=== PATIENT | male | born 1985 | race Caucasian/White ===

== ENCOUNTER 2024-03-25 12:27 | Observation (INO) | payer OTHER ==
[2024-03-25] MEDS ORDERED: NA CHLORIDE 0.9% 1,000 ML ONE (12:57)
[2024-03-25 13:23] LABS: Absolute Basophils 0.1 K/uL (0-0.5); Absolute Eosinophils 0.3 K/uL (0-0.5); Absolute Lymphocytes (CBC) 1.6 K/uL (0.7-4.9); Absolute Monocytes 0.5 K/uL (0.1-1.3); Absolute Neutrophil 4.2 K/uL (1.8-8.0); Basophils % 2.1 % (0-1.3); Hematocrit 40.8 % (39.6-49.0); Hemoglobin 13.7 g/dL (13.6-17.9); Lymphocytes % 22.9 % (15.3-44.8); MCH 29.2 pg (27.0-35.0); MCHC 33.5 g/dL (32.0-36.0); MPV 9.4 fL (7.6-11.3); Monocytes % 7.7 % (3.3-12.3); Neutrophils % 62.3 % (41.7-73.7); Nucleated Red Blood Cells % 0.1 % (0-0); Platelets 246 thou/uL (152-406); RBC Red Blood Cell Count 4.69 M/uL (4.33-5.43); Red Cell Distribution Width 14.1 % (12.1-15.2)
[2024-03-25 13:40] LABS: Albumin 3.1 g/dL (3.4-5.0); Albumin/Globulin Ratio 0.9 (1.1-1.8); Anion Gap 10.3 mEq/L (5.0-15.0); Bilirubin Total 0.4 mg/dL (0.2-1.0); Globulin 3.6 g/dL (2.3-3.5); Magnesium 1.8 mg/dL (1.6-2.4); Potassium 3.3 mEq/L (3.5-5.1); Protein, Total 6.7 g/dL (6.4-8.2); Troponin High Sensitivity 5.9 pg/mL (<58.9)
[2024-03-25] MEDS ORDERED: D5 0.9 NS 1,000 ML IV ONE (14:32)
--- NOTE | 2024-03-25 14:38 | ER ---
Nurse's Notes [facility] Name: Ramakrishna Santana Age: 39 yrs Sex: Male : 1985 Arrival Date: 03/25/2024 Time: 12:27 Bed 19 Private MD: Diagnosis: Other acute kidney failure;Hypokalemia Presentation: 03/25 12:45 Chief complaint: Patient states: passed out due to low blood sugar. Coronavirus screen: kj2 Client denies travel out of the [place] in the last 14 days. Ebola Screen: No symptoms or risks identified at this time. Initial Sepsis Screen: Does the patient meet any 2 criteria? No. Patient's initial sepsis screen is negative. Does the patient have a suspected source of infection? No. Patient's initial sepsis screen is negative. Risk Assessment: Do you want to hurt yourself or someone else? Patient reports no desire to harm self or others. Onset of symptoms was March 25, 2024. 12:45 Method Of Arrival: Ambulatory kj2 12:45 Acuity: BERRY 3 kj2 Triage Assessment: 12:45 General: Appears in no apparent distress. Behavior is calm, cooperative. Pain: Denies kj2 pain. Historical: - Allergies: 13:11 NKDA; kj2 - PMHx: 13:11 Diabetes mellitus; kj2 - Immunization history:: Adult Immunizations unknown. - Infectious Disease History:: Denies. - Social history:: Smoking status: Patient denies any tobacco usage or history of. Screenin:45 [facility] ED Fall Risk Assessment (Adult) History of falling in the last 3 months, kj2 including since admission No falls in past 3 months (0 pts) Confusion or Disorientation No (0 pts) Intoxicated or Sedated No (0 pts) Impaired Gait No (0 pts) Mobility Assist Device Used No (0 pt) Altered Elimination No (0 pt) Score/Fall Risk Level 0 - 2 = Low Risk Oriented to surroundings, Hourly rounding (assess needs \T\ fall precautionary measures) done. Abuse screen: Denies threats or abuse. Denies injuries from another. Nutritional screening: No deficits noted. Tuberculosis screening: No symptoms or risk factors identified. Assessment: 12:50 General: see triage assessment. kj2 14:00 Reassessment: Patient appears in no apparent distress at this time. Patient and/or kj2 family updated on plan of care and expected duration. Pain level reassessed. Patient is alert, oriented x 3, equal unlabored respirations, skin warm/dry/pink. 15:15 Reassessment: Patient appears in no apparent distress at this time. Patient and/or kj2 family updated on plan of care and expected duration. Pain level reassessed. Patient is alert, oriented x 3, equal unlabored respirations, skin warm/dry/pink. 15:38 Reassessment: patient left AMA, form signed. kj2 Vital Signs: 12:45 BP 151 / 101; Pulse 93; Resp 18; Temp 98; Pulse Ox 100% ; Weight 102.06 kg; Height 5 kj2 ft. 6 in. ; Pain 0/10; 14:00 BP 122 / 100; Pulse 86; Resp 20; Pulse Ox 100% on R/A; kj2 15:39 BP 142 / 88; Pulse 78; Resp 18; Temp 98; Pulse Ox 100% ; kj2 12:45 Body Mass Index 36.32 (102.06 kg, 167.64 cm) kj2 12:45 Pain Scale: Adult kj2 ED Course: 12:40 Patient arrived in ED. ap3 12:40 River Erickson FNP-C is PHCP. dr5 12:40 Angel Savage MD is Attending Physician. dr5 12:43 Client placed on continuous cardiac and pulse oximetry monitoring. NIBP monitoring ap3 applied. satellite project site monitor on. Pulse ox on. NIBP on. 12:45 Patient has correct armband on for positive identification. Bed in low position. Call kj2 light in reach. Adult w/ patient. Provided Education on: call light. 12:59 Uma Horne, RN is Primary Nurse. kj2 13:02 Warm blanket given. Verbal reassurance given. em1 13:02 Inserted saline lock: 20 gauge in left antecubital area, using aseptic technique. Blood em1 collected. Flushed with 10 mL NS. 13:06 CBC with Diff Sent. kj2 13:06 Magnesium Sent. kj2 13:06 Troponin HS Sent. kj2 13:09 Triage completed. kj2 13:12 No provider procedures requiring assistance completed. kj2 13:24 XRAY Chest (1 view) In Process Unspecified. EDMS 14:17 EKG done, by ED staff, reviewed by Angel Savage MD. am7 14:38 Yuliana Helms MD is Hospitalizing Provider. dr5 15:39 Arm band placed on Patient placed. kj2 15:40 IV discontinued, intact, bleeding controlled, No redness/swelling at site. Pressure kj2 dressing applied. Administered Medications: 13:05 Drug: NS 0.9% IV 1000 ml IV at 1000 ml once; to be given as a bolus over 60 minutes kj2 Route: IV; Rate: 1000 ml; Site: left antecubital; 14:24 Follow up: IV Status: Completed infusion; IV Intake: 1000ml kj2 14:36 Drug: D5-NS IV 1000 ml IV at 125 ml/hr continuous Route: IV; Rate: 125 ml/hr; Site: bp left forearm; 15:41 Follow up: IV Status: Order to discontinue infusion; IV Intake: 125ml kj2 14:37 Not Given (Other Intervention Used): ns 0.9% 1000 ml IV at 1000 ml once; to be given as bp a bolus over 60 minutes 15:18 Drug: Potassium Chloride PO 40 mEq PO once Route: PO; kj2 15:41 Follow up: Response: No adverse reaction kj2 Medication: 12:45 VIS not applicable for this client. kj2 Intake: 14:24 IV: 1000ml; Total: 1000ml. kj2 15:41 IV: 125ml; Total: 1125ml. kj2 Outcome: 14:38 Decision to Hospitalize by Provider. dr5 15:40 AMA AMA form signed kj2 15:40 Condition: stable 15:40 Discharge instructions given to Instructed on discharge instructions, follow up and referral plans. Demonstrated understanding of instructions, follow-up care, 15:41 Patient left the ED. kj2 Signatures: Dispatcher [employer] Andrew Martinez em1 Zuhair Leal RN RN bp Candy Rust RN RN ap3 Uma Horne RN RN kj2 River Erickson, LUIS M-C BILINGUAL SPEECH THERAPIST-[facility]5 Hannah Pineda am7
--- NOTE | 2024-03-25 14:38 | EDPHYS ---
Physician Documentation [facility] Name: Ramakrishna Santana Age: 39 yrs Sex: Male : 1985 Arrival Date: 03/25/2024 Time: 12:27 Bed 19 Private MD: ED Physician Angel Savage HPI: 03/25 13:04 This 39 yrs old Male presents to ER via Ambulatory with complaints of Low dr5 Blood Sugar. 13:04 Onset: The symptoms/episode began/occurred acutely. Patient is a 39-year-old male with dr5 past medical history of hypertension, diabetes coming in with symptoms of low blood sugar. Mother reports they worked to [employer] and had chocolate shake and orange soda to try to correct sugar. Patient reports taking insulin after eating and long-acting at night. Patient came in by POV into ambulance bay in which IV will turn him to room. Blood sugar upon arrival was in 60s. Patient is alert and oriented without any complaints at this time.. Historical: - Allergies: 13:11 NKDA; kj2 - PMHx: 13:11 Diabetes mellitus; kj2 - Immunization history:: Adult Immunizations unknown. - Infectious Disease History:: Denies. - Social history:: Smoking status: Patient denies any tobacco usage or history of. ROS: 13:04 Constitutional: as per hpi dr5 Exam: 13:04 Constitutional: This is a well developed, well nourished patient who is awake, alert, dr5 and in no acute distress. Head/Face: Normocephalic, atraumatic. Eyes: Pupils equal round and reactive to light, extra-ocular motions intact. Lids and lashes normal. Conjunctiva and sclera are non-icteric and not injected. Cornea within normal limits. Periorbital areas with no swelling, redness, or edema. Chest/axilla: Normal chest wall appearance and motion. Nontender with no deformity. No lesions are appreciated. Cardiovascular: Regular rate and rhythm with a normal S1 and S2. Normal PMI, no JVD. No pulse deficits. Respiratory: Lungs have equal breath sounds bilaterally, clear to auscultation. No rales, rhonchi or wheezes noted. No increased work of breathing, no retractions or nasal flaring. Back: No spinal tenderness. No costovertebral tenderness. Full range of motion. Skin: Warm, dry with normal turgor. Normal color with no rashes, no lesions, and no evidence of cellulitis. MS/ Extremity: Pulses equal, no cyanosis. Neurovascular intact. Full, normal range of motion. Neuro: Awake and alert, GCS 15, oriented to person, place, time, and situation. Cranial nerves II-XII grossly intact. Motor strength 5/5 in all extremities. Sensory grossly intact. Cerebellar exam normal. Normal gait. Vital Signs: 12:45 BP 151 / 101; Pulse 93; Resp 18; Temp 98; Pulse Ox 100% ; Weight 102.06 kg; Height 5 kj2 ft. 6 in. ; Pain 0/10; 14:00 BP 122 / 100; Pulse 86; Resp 20; Pulse Ox 100% on R/A; kj2 15:39 BP 142 / 88; Pulse 78; Resp 18; Temp 98; Pulse Ox 100% ; kj2 12:45 Body Mass Index 36.32 (102.06 kg, 167.64 cm) kj2 12:45 Pain Scale: Adult kj2 MDM: 12:41 Medical Screening Exam initiated miracle 14:45 Differential diagnosis: DKA, hyperglycemia, hypoglycemic episode. Data reviewed: vital dr5 signs, nurses notes, lab test result(s). Consideration of Admission/Observation Patient was admitted/placed on observation. Historians other than the Patient: Parent: Mother. Care significantly affected by the following chronic conditions: Diabetes, Hypertension. Care significantly affected by the following Social Determinants of Health: Poor access to healthcare and/or lack of insurance, Poor access to transportation, Problems related to employment. Counseling: I had a detailed discussion with the patient and/or guardian regarding the historical points, exam findings, and any diagnostic results supporting the discharge/admit diagnosis, the presence of at least one elevated blood pressure reading (>120/80) during this emergency department visit, lab results, the need for further work-up and treatment in the hospital. Response to treatment: the patient's symptoms have mildly improved after treatment. ED course: Patient came in with blood sugar of 60 and slightly altered. Blood work found to have acute kidney injury with creatinine of almost 2. Patient was given juice and later had another episode of hypoglycemia with altered mental status. Will admit for acute kidney injury and observation.. 03/25 12:41 Order name: CBC with Diff; Complete Time: 13:37 dr5 01/19 12:41 Order name: Magnesium; Complete Time: 13:53 dr5 03/25 12:41 Order name: Troponin HS; Complete Time: 13:53 dr5 03/25 12:41 Order name: CMP; Complete Time: 13:53 dr5 03/25 12:41 Order name: Urinalysis w/ reflexes dr5 03/25 12:46 Order name: Urine Drug Screen dr5 03/25 12:48 Order name: Glucose, Ancillary Testing; Complete Time: 12:50 EDMS 03/25 14:40 Order name: Glucose, Ancillary Testing; Complete Time: 14:47 EDMS 03/25 14:53 Order name: Basic Metabolic Panel EDMS 03/25 14:53 Order name: Basic Metabolic Panel EDMS 03/25 14:53 Order name: Basic Metabolic Panel EDMS 03/25 14:53 Order name: Basic Metabolic Panel EDMS 03/25 14:53 Order name: Basic Metabolic Panel EDMS 03/25 14:53 Order name: Basic Metabolic Panel EDMS 03/25 14:53 Order name: Basic Metabolic Panel EDMS 03/25 14:53 Order name: Basic Metabolic Panel EDMS 03/25 14:53 Order name: CBC with Automated Diff EDMS 03/25 14:53 Order name: CBC with Automated Diff EDMS 03/25 14:53 Order name: CBC with Automated Diff EDMS 03/25 14:53 Order name: CBC with Automated Diff EDMS 03/25 14:53 Order name: CBC with Automated Diff EDMS 03/25 14:53 Order name: CBC with Automated Diff EDMS 03/25 14:53 Order name: CBC with Automated Diff EDMS 03/25 14:53 Order name: CBC with Automated Diff EDMS 03/25 14:53 Order name: Magnesium EDMS 03/25 14:53 Order name: Magnesium EDMS 03/25 14:53 Order name: Magnesium EDMS 03/25 14:53 Order name: Magnesium EDMS 03/25 14:53 Order name: Magnesium EDMS 03/25 14:53 Order name: Magnesium EDMS 03/25 14:53 Order name: Magnesium EDMS 03/25 14:53 Order name: Magnesium EDMS 03/25 15:39 Order name: Glucose, Ancillary Testing; Complete Time: 15:40 EDMS 03/25 12:41 Order name: XRAY Chest (1 view); Complete Time: 14:51 [facility] 03/25 12:41 Order name: Cardiac monitoring; Complete Time: 12:42 [facility] 03/25 12:41 Order name: EKG - Nurse/Tech; Complete Time: 13:56 [facility] 03/25 12:41 Order name: IV Saline Lock; Complete Time: 13:03 [facility] 03/25 12:41 Order name: Labs collected and sent; Complete Time: 13:03 [facility] 03/25 12:41 Order name: O2 Per Protocol; Complete Time: 12:42 [facility] 03/25 12:41 Order name: O2 Sat Monitoring; Complete Time: 12:42 dr5 Administered Medications: 13:05 Drug: NS 0.9% IV 1000 ml IV at 1000 ml once; to be given as a bolus over 60 minutes kj2 Route: IV; Rate: 1000 ml; Site: left antecubital; 14:24 Follow up: IV Status: Completed infusion; IV Intake: 1000ml kj2 14:36 Drug: D5-NS IV 1000 ml IV at 125 ml/hr continuous Route: IV; Rate: 125 ml/hr; Site: bp left forearm; 15:41 Follow up: IV Status: Order to discontinue infusion; IV Intake: 125ml kj2 14:37 Not Given (Other Intervention Used): ns 0.9% 1000 ml IV at 1000 ml once; to be given as bp a bolus over 60 minutes 15:18 Drug: Potassium Chloride PO 40 mEq PO once Route: PO; kj2 15:41 Follow up: Response: No adverse reaction kj2 Disposition Summary: 03/25/24 14:38 Hospitalization Ordered Notes: Hospitalization Status: Observation dr5 Provider: uYliana Helms dr5 Location: Telemetry/MedSurg (observation) dr5 Condition: Stable dr5 Problem: new dr5 Symptoms: are unchanged dr5 Bed/Room Type: Standard dr5 Room Assignment: dr5 Diagnosis - Other acute kidney failure dr5 - Hypokalemia dr5 Forms: - Medication Reconciliation Form dr5 - SBAR form dr5 - Leadership Thank You Letter dr5 Signatures: Dispatcher [employer] EDMS Angel Savage MD MD cha Peltier, Brian, RN RN bp Uma Horne, RN RN kj2 River Erickson, MATERIAL REQUIREMENTS WORKER-C MATERIAL REQUIREMENTS WORKER-Cdr5 Corrections: (The following items were deleted from the chart) 12:41 12:41 Chest Single View+RAD.RAD.BRZ ordered. EDMS EDMS
[2024-03-25] MEDS ORDERED: ACETAMINOPHEN 500 MG TAB PO PRN (14:47)
[2024-03-25] MEDS ORDERED: ONDANSETRON 4 MG/2 ML VIAL IV PRN (14:47)
--- NOTE | 2024-03-25 14:50 | RAD REPORT ---
EXAMINATION: ONE VIEW CHEST XR CLINICAL INDICATION: Male, 39 years old.,PAIN TECHNIQUE: Frontal chest projection is submitted. Examination is limited by patient positioning and t echnique. COMPARISON: 10/28/2010 FINDINGS: The lungs are grossly clear although suboptimal inspiratory effort somewhat limits evaluation. No pn eumothorax or sizable effusion. The heart is normal in size. Mediastinal contours are unremarkable. IMPRESSION: No acute intrathoracic abnormalities.
[2024-03-25] MEDS ORDERED: DEXTROSE 10%-WATER 500 ML IV SCH (15:00)
[2024-03-25] MEDS ORDERED: POTASSIUM CL SA 10 MEQ TAB PO ONE (15:00)
--- NOTE | 2024-03-25 15:34 | P.HP ---
Certification for Inpatient Patient admitted to: Observation With expected LOS: <2 Midnights Practitioner: I am a practitioner with admitting privileges, knowledge of patient current condition, hospital course, and medical plan of care. Services: Services provided to patient in accordance with Admission requirements found in Title 42 Section 412.3 of the Code of Federal Regulations Patient History Date of Service: 03/25/24 Reason for admission: Hypoglycemia History of Present Illness: 39-year-old male with history of type 2 diabetes, essential hypertension, hyperlipidemia, who initially presented with altered mental status and hypoglycemia. Per daughter's account was at the bedside, this morning after leaving [facility], patient was having generalized tremors consistent with his prior episodes of hypoglycemia and mentation was also altered. Family then drove [employer] so he can get something to eat however he only drank orange juice and continue to have tremors with worsening mentation so family drove patient to the emergency room at [facility]. Of note, patient takes Trulicity, and a long-acting insulin and short acting insulin with meals though he does not know the names of the insulin In the ER, blood sugar was in the 60s. Patient given NS IV fluids and amp of D50, repeat blood sugars were checked after 2 hours, but it has dropped to the 50s prompted patient to be referred for admission. When I arrived at bedside, patient was seen up in bed, oriented x 3, was back at baseline according to daughter. He declined admission stating that he has had issues like this in the past and he felt better after receiving IV fluids and D50. Allergies No Known Allergies Allergy (Unverified 03/25/24 15:13) Review of Systems 10-point ROS is otherwise unremarkable Physical Examination - Physical Exam General: Alert, Oriented x3 HEENT: Atraumatic Neck: Supple Respiratory: Clear to auscultation bilaterally Cardiovascular: No edema, Normal pulses, Regular rate/rhythm Gastrointestinal: Normal bowel sounds, Soft and benign, Non-distended Musculoskeletal: No clubbing, No swelling Integumentary: No rashes, No breakdown Neurological: Normal gait, Normal tone, Normal affect - Studies Laboratory Data (last 24 hrs) 03/25/24 03/25/24 12:57 12:57 WBC 6.80 Hgb 13.7 Hct 40.8 Plt Count 246 Sodium 137 Potassium 3.3 L BUN 19 H Creatinine 1.95 H Glucose 74 Magnesium 1.8 Total Bilirubin 0.4 AST 61 H ALT 60 Alkaline Phosphatase 101 Assessment and Plan - Plan 1. Hypoglycemia secondary to polypharmacy -Blood sugars in the 60s in ER however dropped to the 50s after receiving amp of D50 so was admitted for overnight monitoring -Initiated on D10 with every 4 hours fingersticks -Discussed with patient regarding the rationale for inpatient admission and the need to be monitored in the medical setting in light of risk of recurrent hypoglycemia however he declined to be admitted stating that he has had similar symptoms in the past and that resolved quickly after receiving treatment. Opted to sign out AMA. Daughter was present during the discussion - Advance Directives Does patient have a Living Will: No Does patient have a Durable POA for Healthcare: No
--- NOTE | 2024-03-25 15:41 | P.DS ---
Admission Date: 03/25/24 Discharge Date: 03/25/24 Disposition: AMA-LEFT AGAINST MEDICAL ADVIC Discharge Condition: GOOD Reason for Admission: Hypoglycemia Brief History of Present Illness: 39-year-old male with history of type 2 diabetes, essential hypertension, hyperlipidemia, who initially presented with altered mental status and hypoglycemia. Per daughter's account was at the bedside, this morning after leaving [facility], patient was having generalized tremors consistent with his prior episodes of hypoglycemia and mentation was also altered. Family then drove [employer] so he can get something to eat however he only drank orange juice and continue to have tremors with worsening mentation so family drove patient to the emergency room at [facility]. Of note, patient takes Trulicity, and a long-acting insulin and short acting insulin with meals though he does not know the names of the insulin In the ER, blood sugar was in the 60s. Patient given NS IV fluids and amp of D50, repeat blood sugars were checked after 2 hours, but it has dropped to the 50s prompted patient to be referred for admission. When I arrived at bedside, patient was seen up in bed, oriented x 3, was back at baseline according to daughter. He declined admission stating that he has had issues like this in the past and he felt better after receiving IV fluids and D50. Hospital Course: 39-year-old male with history of type 2 diabetes, essential hypertension, hyperlipidemia, for altered mental status and hypoglycemia. Initial blood sugars in the ER was in the 60s and actually decreased to the 50s after receiving D50 so patient admitted for inpatient treatment for hypoglycemia. Of note he takes Trulicity, long-acting insulin and short acting insulin with meals. On admission ordered D10, however patient declined to be admitted, stating that he he feels fine and has had prior episodes in the past which resolved quickly and despite my warning regarding the risk of recurrent hypoglycemia if not treated promptly, he opted to leave AMA General: Oriented x3 HEENT: Atraumatic Neck: Supple Respiratory: Clear to auscultation bilaterally, Normal air movement Cardiovascular: No edema Musculoskeletal: No clubbing, No swelling Neurological: Normal gait, Normal strength at 5/5 x4 extr Laboratory Data at Discharge: WBC 6.80 thou/uL (4.3-10.9) 03/25/24 12:57 Hgb 13.7 g/dL (13.6-17.9) 03/25/24 12:57 Hct 40.8 % (39.6-49.0) 03/25/24 12:57 Plt Count 246 thou/uL (152-406) 03/25/24 12:57 Sodium 137 mEq/L (136-145) 03/25/24 12:57 Potassium 3.3 mEq/L (3.5-5.1) L 03/25/24 12:57 BUN 19 mg/dL (7-18) H 03/25/24 12:57 Creatinine 1.95 mg/dL (0.70-1.30) H 03/25/24 12:57 Glucose 74 mg/dL (74-106) 03/25/24 12:57 Magnesium 1.8 mg/dL (1.6-2.4) 03/25/24 12:57 Total Bilirubin 0.4 mg/dL (0.2-1.0) 03/25/24 12:57 AST 61 U/L (15-37) H 03/25/24 12:57 ALT 60 U/L (16-61) 03/25/24 12:57 Alkaline Phosphatase 101 U/L (45-117) 03/25/24 12:57 Followup: [email or web address] [Primary Care Provider] -
[2024-03-25 15:56] LABS: Barbiturates NEGATIVE (NEGATIVE); Benzodiazepines NEGATIVE (NEGATIVE); Cocaine NEGATIVE (NEGATIVE); METHAMPHETAM NEGATIVE (NEGATIVE); Methadone NEGATIVE (NEGATIVE); Opiates NEGATIVE (NEGATIVE); Phencyclidine NEGATIVE (NEGATIVE); THC Cannibis NEGATIVE (NEGATIVE)
[2024-03-25 16:03] VITALS: TEMP 98; O2SAT 100
[2024-03-25 16:14] VITALS: BP 142/88
== END 2024-03-25 19:00 | disposition home or self-care (01) ==
LOC: ER 12:27 → INTOOBSV 14:44 → ERHOLD 14:44
PROVIDERS: ADMIT Internal Medicine; ATTEND Internal Medicine
DX: E11.649 Type 2 diabetes mellitus with hypoglycemia without coma (principal); R41.82 Altered mental status, unspecified; R25.1 Tremor, unspecified; I10 Essential (primary) hypertension; E78.5 Hyperlipidemia, unspecified; N19 Unspecified kidney failure; Z79.4 Long term (current) use of insulin; Z53.29 Procedure and treatment not carried out because of patient's decision for other reasons
CPT/HCPCS: 85025; 36415; 83735; 82947 ×3; 84484; 80053; 80307; 71045; J7042; J7030; G0378

== ENCOUNTER 2024-04-08 07:10 | Inpatient (IN) | payer OTHER ==
[2024-04-08 08:16] LABS: Absolute Basophils 0.2 K/uL (0-0.5); Absolute Eosinophils 0.2 K/uL (0-0.5); Absolute Lymphocytes (CBC) 1.1 K/uL (0.7-4.9); Absolute Monocytes 0.5 K/uL (0.1-1.3); Absolute Neutrophil 9.6 K/uL (1.8-8.0); Basophils % 1.6 % (0-1.3); Eosinophils % 1.6 % (0-4.4); Hematocrit 37.8 % (39.6-49.0); Hemoglobin 12.5 g/dL (13.6-17.9); Lymphocytes % 9.8 % (15.3-44.8); MCH 28.8 pg (27.0-35.0); MCHC 33.2 g/dL (32.0-36.0); MCV 86.9 fL (80-100); MPV 9.2 fL (7.6-11.3); Monocytes % 4.5 % (3.3-12.3); Neutrophils % 82.5 % (41.7-73.7); Platelets 265 thou/uL (152-406); RBC Red Blood Cell Count 4.35 M/uL (4.33-5.43); Red Cell Distribution Width 13.9 % (12.1-15.2)
--- NOTE | 2024-04-08 08:16 | RAD REPORT ---
EXAMINATION: CT HEAD WITHOUT CONTRAST CLINICAL INDICATION: Male, 39 years old.AMS TECHNIQUE: Axial CT images from the skull base to the vertex without intravenous contrast. Coronal an d sagittal reformatted images were created from the data set. One or more of the following dose reduction techniques were used: Automated exposure control, adjustment of the mA and/or kV according to patient size, and/or iterative reconstruction. Unless otherwise specified, incidental findings do not require dedicated imaging follow-up. [id number]. COMPARISON: No prior exam. FINDINGS: INTRACRANIAL: No acute intracranial hemorrhage. No hydrocephalus. No mass effect or midline shift. No significant white matter disease.Randall cisterna magna. VASCULATURE: No visualized abnormalities in the arteries or dural venous sinuses. SCALP/SKULL: No significant soft tissue or osseous abnormalities. SINUSES: The visualized paranasal sinuses and mastoid air cells are predominantly clear. IMPRESSION: No acute intracranial abnormality.
[2024-04-08 08:28] LABS: PT Prothrombin Time 11.7 SECONDS (9.4-12.5); PTT, Activated Partial Thromb 41.5 SECONDS (24.3-36.9); Protime INR 1.12
[2024-04-08 08:33] LABS: Albumin 2.9 g/dL (3.4-5.0); Albumin/Globulin Ratio 0.8 (1.1-1.8); Anion Gap 11.1 mEq/L (5.0-15.0); Bilirubin Total 0.3 mg/dL (0.2-1.0); Globulin 3.5 g/dL (2.3-3.5); Potassium 4.1 mEq/L (3.5-5.1); Protein, Total 6.4 g/dL (6.4-8.2)
[2024-04-08 08:33] LABS: Specific Gravity 1.008 (1.005-1.030); Sqamous Epithelial <5 /HPF (None Seen); Urine Bacteria None Seen /HPF (<20); Urine Bilirubin NEGATIVE (Negative); Urine Blood Trace (Negative); Urine Clarity Clear (Clear); Urine Color Colorless (Yellow); Urine Culture Reflex Order NOT NEEDED; Urine Glucose NEGATIVE (Negative); Urine Ketones NEGATIVE (Negative); Urine Microscopic Reflex YN ORDER UMIC; Urine Mucus Slight /HPF (None Seen); Urine Nitrite NEGATIVE (Negative); Urine Protein 1+ (Negative); Urine RBC <5 /HPF (None Seen); Urine Urobilinogen Normal (Normal); Urine WBC <5 /HPF (<5); Urine pH 5.5 (5.0-7.0)
[2024-04-08 08:51] LABS: SARS-CoV-2 Antigen CONTROL BLUE LINE VIS/BG OK; SARS-CoV-2 Antigen Rapid Res Negative (Negative)
--- NOTE | 2024-04-08 08:57 | RAD REPORT ---
EXAM: Chest Single View HISTORY: AMS;Cough COMPARISON: 03/25/2024 FINDINGS: LUNGS/PLEURA: The lungs are clear. No pleural effusions or pneumothorax. No pulmonary edema. MEDIASTINUM: The mediastinal silhouette is within normal limits. CARDIAC: The cardiac silhouette is within normal limits. UPPER ABDOMEN: No significant abnormality. BONES: No acute abnormality. LINES/TUBES/OTHER: N/A IMPRESSION: No evidence of acute cardiopulmonary disease.
--- NOTE | 2024-04-08 09:20 | ER ---
Nurse's Notes [facility] Name: Ramakrishna Santana Age: 39 yrs Sex: Male : 1985 Arrival Date: 04/08/2024 Time: 07:10 Bed 3 Private MD: Diagnosis: Hypoglycemia, unspecified;Altered mental status, unspecified;Acute kidney failure, unspecified Presentation: 04/08 07:12 Chief complaint: EMS states: LOW BLOOD SUGAR. Coronavirus screen: At this time, the dd2 client does not indicate any symptoms associated with coronavirus-19. Ebola Screen: No symptoms or risks identified at this time. Initial Sepsis Screen: Does the patient meet any 2 criteria? HR > 90 bpm. No. Patient's initial sepsis screen is negative. Does the patient have a suspected source of infection? No. Patient's initial sepsis screen is negative. Risk Assessment: Do you want to hurt yourself or someone else? Patient reports no desire to harm self or others. Onset of symptoms is unknown. Care prior to arrival: IV initiated. 18 GA, in the left antecubital area, Glucose check: 142. 07:12 Method Of Arrival: EMS: [facility] dd2 07:12 Acuity: BERRY 3 dd2 Triage Assessment: 07:14 General: Appears in no apparent distress. unkempt, Behavior is cooperative, CONFUSED. dd2 Pain: Denies pain. EENT: No deficits noted. Neuro: Level of Consciousness is awake, obeys commands, confused, Oriented to person. Cardiovascular: Rhythm is sinus tachycardia. Respiratory: No deficits noted. GI: No signs and/or symptoms were reported involving the gastrointestinal system. : No signs and/or symptoms were reported regarding the genitourinary system. Derm: Skin is diaphoretic. Musculoskeletal: No deficits noted. Historical: - Allergies: 07:14 NKDA; dd2 - PMHx: 07:14 diabetes mellitus; Hypertensive disorder; dd2 - Immunization history:: Adult Immunizations up to date. - Infectious Disease History:: Denies. - Social history:: Smoking status: Patient denies any tobacco usage or history of. - Family history:: not pertinent. - Hospitalizations: : No recent hospitalization is reported. Screenin:15 [facility] ED Fall Risk Assessment (Adult) History of falling in the last 3 months, bp including since admission No falls in past 3 months (0 pts) Confusion or Disorientation Yes (5 pts) Intoxicated or Sedated No (0 pts) Impaired Gait No (0 pts) Mobility Assist Device Used No (0 pt) Altered Elimination No (0 pt) Score/Fall Risk Level 3 or more points = High Risk Oriented to surroundings. Abuse screen: Denies threats or abuse. Denies injuries from another. Nutritional screening: No deficits noted. Tuberculosis screening: No symptoms or risk factors identified. Assessment: 08:41 Reassessment: [facility] - [phone]. ld1 09:30 Reassessment: Patient appears in no apparent distress at this time. No changes from ld1 previously documented assessment. Patient and/or family updated on plan of care and expected duration. Pain level reassessed. Patient is alert, oriented x 3, equal unlabored respirations, skin warm/dry/pink. 11:15 Reassessment: Patient appears in no apparent distress at this time. No changes from ld1 previously documented assessment. Patient and/or family updated on plan of care and expected duration. Pain level reassessed. 12:45 Reassessment: Patient appears in no apparent distress at this time. No changes from ld1 previously documented assessment. 13:50 Reassessment: Patient appears in no apparent distress at this time. No changes from ld1 previously documented assessment. 15:05 Reassessment: Patient appears in no apparent distress at this time. No changes from ld1 previously documented assessment. Patient and/or family updated on plan of care and expected duration. Pain level reassessed. Vital Signs: 07:12 BP 130 / 85; Pulse 115; dd2 07:50 BP 148 / 112; Pulse 111; Resp 23; Pulse Ox 98% on R/A; ld1 07:50 Temp 98.5(O); ld1 08:26 Pulse 108; Resp 18; Pulse Ox 99% on R/A; ld1 10:30 BP 137 / 99; Pulse 106; Resp 19; Pulse Ox 99% ; bp 14:22 BP 146 / 94; Pulse 111; Resp 21; Temp 98.5; Pulse Ox 99% ; bp ED Course: 07:12 Patient arrived in ED. rn 07:12 Don Lopez MD is Attending Physician. rn 07:12 KURT WHEELER RN is Primary Nurse. dd2 07:13 Triage completed. dd2 07:14 Arm band placed on. dd2 07:15 Patient has correct armband on for positive identification. bp 07:15 Maintain EMS IV. Dressing intact. Good blood return noted. Site clean \T\ dry. Gauge \T\ dd 2 site: 18 LAC. 07:15 No provider procedures requiring assistance completed. bp 07:16 Primary Nurse role handed off by KURT WHEELER, RN bp 07:16 Zuhair Leal, RN is Primary Nurse. bp 08:06 CT Head Brain wo Cont In Process Unspecified. EDMS 08:41 Chest Single View XRAY In Process Unspecified. EDMS 09:19 Ronny Lopez MD is Hospitalizing Provider. rn 14:25 Patient admitted, IV remains in place. bp 14:26 Provided Education on: na. bp Administered Medications: No medications were administered Medication: 14:26 VIS not applicable for this client. bp Outcome: 09:19 Decision to Hospitalize by Provider. rn 14:25 Admitted to Med/surg accompanied by tech, via wheelchair, room 408, with chart, bp 14:25 Condition: stable 14:25 Instructed on the need for admit, 15:06 Patient left the ED. ld1 Signatures: Dispatcher [employer] EDMS Don Lopez MD MD rn Peltier, Brian, RN RN Tonja Freeman RN RN ld1 KURT WHEELER, JAVI RN dd2
--- NOTE | 2024-04-08 09:20 | EDPHYS ---
Physician Documentation [facility] Name: Ramakrishna Santana Age: 39 yrs Sex: Male : 1985 Arrival Date: 04/08/2024 Time: 07:10 Bed 3 Private MD: ED Physician Don Lopez HPI: 04/08 07:24 This 39 yrs old Male presents to ER via EMS with complaints of low blood sugar. rn 07:24 The patient presents with decreased responsiveness. Onset: The symptoms/episode rn began/occurred at an unknown time. Current symptoms: In the emergency department the patient's symptoms have improved. It is unknown whether or not the patient has had similar symptoms in the past. EMS called out for altered mental status and low blood sugar, glucose was in the 40s, given D10 with improvement of glucose and improvement of symptoms. Patient still not completely back to baseline per EMS. Patient is answering some questions but seems repetitive in nature. No known trauma. Patient reports has been feeling sick, subjective fever and chills.. Historical: - Allergies: 07:14 NKDA; dd2 - PMHx: 07:14 diabetes mellitus; Hypertensive disorder; dd2 - Immunization history:: Adult Immunizations up to date. - Infectious Disease History:: Denies. - Social history:: Smoking status: Patient denies any tobacco usage or history of. - Family history:: not pertinent. - Hospitalizations: : No recent hospitalization is reported. ROS: 07:24 Constitutional: Positive for subjective fever and chills Eyes: Negative for injury, rn pain, redness, and discharge, Cardiovascular: Negative for chest pain, palpitations, and edema, Respiratory: Positive for cough Abdomen/GI: Negative for abdominal pain, nausea, vomiting, diarrhea, and constipation, MS/Extremity: Negative for injury and deformity, Skin: Negative for injury, rash, and discoloration, Neuro: Positive for generalized weakness, negative for focal weakness or numbness. Negative for seizure Exam: 07:24 Constitutional: This is a well developed, well nourished patient who is awake, alert, rn slow to respond and has repetitive answers Head/Face: Normocephalic, atraumatic. ENT: Dry mucous membranes Cardiovascular: Tachycardic, regular Respiratory: No increased work of breathing, no retractions or nasal flaring. Abdomen/GI: Soft, nontender, nondistended MS/ Extremity: Pulses equal, no cyanosis. Neuro: Awake and alert, GCS 15, oriented to person. Cranial nerves II-XII grossly intact. Motor strength 4/5 in all extremities. Sensory grossly intact. 07:43 ECG was reviewed by the Attending Physician. rn Vital Signs: 07:12 BP 130 / 85; Pulse 115; dd2 07:50 BP 148 / 112; Pulse 111; Resp 23; Pulse Ox 98% on R/A; ld1 07:50 Temp 98.5(O); ld1 08:26 Pulse 108; Resp 18; Pulse Ox 99% on R/A; ld1 10:30 BP 137 / 99; Pulse 106; Resp 19; Pulse Ox 99% ; bp 14:22 BP 146 / 94; Pulse 111; Resp 21; Temp 98.5; Pulse Ox 99% ; bp MDM: 07:12 Medical Screening Exam initiated rn 07:42 ED course: Per EMS, last known normal was last night when family went to bed. Patient rn unable to tell us his last known normal.. 09:18 Differential Diagnosis: CVA, electrolyte abnormality, hypoglycemia, intracranial bleed, rn pneumonia, seizure, UTI, volume depletion. Data reviewed: vital signs, nurses notes, lab test result(s), EKG, radiologic studies, CT scan, and as a result, I will admit patient. Consideration of Admission/Observation Patient was admitted/placed on observation. Escalation of care including admission/observation considered. Counseling: I had a detailed discussion with the patient and/or guardian regarding the historical points, exam findings, and any diagnostic results supporting the discharge/admit diagnosis, lab results, radiology results, the need for further work-up and treatment in the hospital. Response to treatment: the patient's symptoms have mildly improved after treatment. ED course: Glucose corrected, still not back to baseline. CT head without acute findings. Lab results do show elevated creatinine compared to baseline, likely precipitating hypoglycemic episodes. Will admit to hospitalist service for further care.. 04/08 07:12 Order name: Blood Culture Adult (2) rn 04/08 07:12 Order name: CBC with Diff; Complete Time: 08:25 rn 04/08 07:12 Order name: CMP; Complete Time: 08:40 rn 04/08 07:12 Order name: Lactate w/ 2H reflex if indic.; Complete Time: 09:16 rn 04/08 07:12 Order name: Protime (+inr); Complete Time: 08:40 rn 04/08 07:12 Order name: Ptt, Activated; Complete Time: 08:40 rn 04/08 07:12 Order name: Urinalysis w/ reflexes; Complete Time: 08:40 rn 04/08 07:12 Order name: Flu; Complete Time: 09:00 rn 04/08 07:12 Order name: SARS-COV-2 Antigen Rapid; Complete Time: 09:00 rn 04/08 11:06 Order name: UR CREAT EDMS 04/08 11:06 Order name: UR SODIUM EDMS 04/08 11:06 Order name: Urinalysis w/ reflexes EDMS 04/08 11:06 Order name: Basic Metabolic Panel EDMS 04/08 11:06 Order name: Basic Metabolic Panel EDMS 04/08 07:12 Order name: Chest Single View XRAY; Complete Time: 09:00 rn 04/08 07:12 Order name: CT Head Brain wo Cont; Complete Time: 08:25 rn 04/08 07:12 Order name: Accucheck; Complete Time: 07:16 rn 04/08 07:12 Order name: Cardiac monitoring; Complete Time: 07:16 rn 04/08 07:12 Order name: EKG - Nurse/Tech; Complete Time: 07:52 rn 04/08 07:12 Order name: IV Saline Lock - Large Bore; Complete Time: 07:16 rn 04/08 07:12 Order name: Labs collected and sent; Complete Time: 07:52 rn 04/08 07:12 Order name: O2 Per Protocol; Complete Time: 07:16 rn 04/08 07:12 Order name: O2 Sat Monitoring; Complete Time: 07:16 rn 04/08 07:12 Order name: Vital Signs; Complete Time: 07:16 rn EC:43 Rate is 111 beats/min. Rhythm is regular. QRS [place] is Normal. TN interval is normal. rn QRS interval is normal. QT interval is normal. No Q waves. No ST changes noted. Clinical impression: Sinus tachycardia. Interpreted by me. Reviewed by me. Administered Medications: No medications were administered Disposition Summary: 04/08/24 09:19 Hospitalization Ordered Notes: Hospitalization Status: Inpatient Admission rn Provider: Ronny Lopez rn Location: Telemetry/MedSurg (Inpatient) rn Condition: Stable rn Problem: new rn Symptoms: have improved rn Bed/Room Type: Standard rn Room Assignment: 408(04/08/24 14:10) eb Diagnosis - Hypoglycemia, unspecified rn - Altered mental status, unspecified rn - Acute kidney failure, unspecified rn Forms: - Medication Reconciliation Form rn - SBAR form rn - Leadership Thank You Letter rn Signatures: Dispatcher [employer] EDWA Don Lopez MD MD rn Botello, Elizabeth eb DAVIS, DIANA, RN RN dd2 Corrections: (The following items were deleted from the chart) 07:13 07:13 BLOOD CULTURE*+BA.LAB.BRZ ordered. EDMS EDMS 07:13 07:13 CBC+H.LAB.BRZ ordered. EDMS EDMS 07:13 07:13 COMPREHENSIVE METABOLIC PANEL+C.LAB.BRZ ordered. EDMS EDMS 07:13 07:13 LACTATE+C.LAB.BRZ ordered. EDMS EDMS 07:13 07:13 PROTIME (+INR)+COAG.LAB.BRZ ordered. EDMS EDMS 07:13 07:13 PTT, ACTIVATED+COAG.LAB.BRZ ordered. EDMS EDMS 07:13 07:13 Urinalysis+U.LAB.BRZ ordered. EDMS EDMS 07:13 07:13 Chest Single View+RAD.RAD.BRZ ordered. EDMS EDMS 07:13 07:13 Head Brain Wo Cont+CT.RAD.BRZ ordered. EDMS EDMS 07:13 07:13 Influenza Screen (A \T\ B)+BA.LAB.BRZ ordered. EDMS EDMS 07:13 07:13 SARS-COV-2 Antigen Rapid+I.LAB.BRZ ordered. EDMS EDMS 08:12 07:24 Constitutional: This is a well developed, well nourished patient who is awake, rn alert, slow to respond and has repetitive answers Head/Face: Normocephalic, atraumatic. ENT: Dry mucous membranes Cardiovascular: Tachycardic, regular Respiratory: No increased work of breathing, no retractions or nasal flaring. Abdomen/GI: Soft, nontender, nondistended MS/ Extremity: Pulses equal, no cyanosis. Neuro: Awake and alert, GCS 15, oriented to person. Cranial nerves II-XII grossly intact. Motor strength 4/5 in all extremities. Sensory grossly intact. rn 14:10 09:19 rn eb
[2024-04-08] MEDS ORDERED: ACETAMINOPHEN 325 MG TABLET PO PRN (10:58)
[2024-04-08] MEDS ORDERED: GLUCAGON 1 MG/VIAL IM PRN (10:58)
[2024-04-08] MEDS ORDERED: ALBUTEROL 2.5 MG/3 ML NEB SOL NEB PRN (10:58)
[2024-04-08] MEDS ORDERED: D10W 125 ML IV PRN (10:58)
[2024-04-08] MEDS ORDERED: ACETAMINOPHEN 500 MG TAB PO PRN (10:58)
[2024-04-08] MEDS ORDERED: ZOLPIDEM TARTRATE 5 MG TABLET PO PRN (10:58)
[2024-04-08] MEDS ORDERED: ONDANSETRON 4 MG/2 ML VIAL IV PRN (10:58)
[2024-04-08] MEDS: INSULIN REGULAR (HUMAN) 100 UNIT/ML SQ SCH (11:30)
--- NOTE | 2024-04-08 12:00 | P.HP ---
Certification for Inpatient Patient admitted to: Inpatient With expected LOS: >2 Midnights Practitioner: I am a practitioner with admitting privileges, knowledge of patient current condition, hospital course, and medical plan of care. Services: Services provided to patient in accordance with Admission requirements found in Title 42 Section 412.3 of the Code of Federal Regulations Patient History Date of Service: 04/08/24 Reason for admission: MINESH, hypoglycemia History of Present Illness: This is 39 years old gentleman with past medical history of type 2 diabetes on multiple diabetic medication including insulin, hypertension, obesity who was brought to EMS for hypoglycemia. In the field his blood sugar was 40 so D50 IV was given. His blood sugar was improved but his mental status still altered. He was mildly tachycardic, normotensive afebrile, upon arrival at emergency room. His serum glucose level was 155 but his creatinine was elevated around 3. Internal medicine was called for admission. Patient is a poor historian, does not remember any name of his medications. He reports he had a hypoglycemic episode in the past, he is urinating well without any urinary difficulty, his last urination was yesterday. Allergies No Known Allergies Allergy (Unverified 03/25/24 15:13) Review of Systems Other: Consitutional; fever(-), chills (-), rigor(-), night sweat(-), unintentional weight loss(-), malaise (+) HEENT; diplopia (-), rhinorrhea (-), epistaxis (-), otorrhea (-), otalgia (-) Respiratory; shortness of breath (-), wheezing (-), cough (-), sputum (-), pleuritic chest pain (-) Cardiovascular; chest pain (-), peripheral edema (-), paroxysmal nocturnal dyspnea (-), orthopnea (-) Gastrointestinal; nausea (-), vomiting (-), abdominal pain (-), diarrhea (-), constipation (-), melena (-), hematochezia (-) Genitourinary; urinary frequency (-), dysuria (-), urgency (-), flank pain (-), gross hematuria (-), incontinence (-) Skin; rash (-), pruritus (-) MARKETING OPERATIONS SPECIALIST; headache (-), paresthesia (-), numbness (-), paralysis (-) Physical Examination - Physical Exam Other Physical/Emotional Findings: - Physical Exam. General: Not acutely ill looking, in no apparent distress,. HEENT: Normocephalic, atraumatic, nonicteric sclera, nonanemic conjunctive. Neck: Supple, without JVD or goiter or thyroid mass. Respiratory: Normal breathing effort, clear to auscultation bilaterally, no crackles no wheezing or rhonchi. Cardiovascular: Regular rate and rhythm, S1, S2 normal, no murmur no gallop. Gastrointestinal: Normal bowel sounds, nondistended, nontender, No ascites, , No masses, no hepatosplenomegaly. Extr emities : No clubbing, No peripheral edema,. Integumentary: No rashes, petechia, suspected lesions. Lymphatics: No axilla or cervical lymphadenopathy. Neurology; groggy, easily arousable by verbal stimuli oriented x3, no focal neurologic deficit, - Studies Laboratory Data (last 24 hrs) 04/08/24 04/08/24 04/08/24 07:55 07:55 07:55 WBC 11.70 H Hgb 12.5 L Hct 37.8 L Plt Count 265 PT 11.7 INR 1.12 APTT 41.5 H Sodium 136 Potassium 4.1 BUN 24 H Creatinine 2.98 H Glucose 155 H Total Bilirubin 0.3 AST 31 ALT 51 Alkaline Phosphatase 123 H Microbiology Data (last 24 hrs): 04/08/24 07:55 Nasopharnyx Influenza Type A Antigen Screen - Final 04/08/24 07:55 Nasopharnyx Influenza Type B Antigen Screen - Final Assessment and Plan - Plan This is 39 years old gentleman with a past medical history notable for type 2 diabetes on multiple diabetic medication including insulin, hypertension, obesity who presented to emergency room by EMS for hypoglycemia episode at home. Her blood sugar was reported to 40 by EMS, D50 was given, his serum glucose in the emergency room improved to 155 but still groggy, CT of the head showed no abnormality. He is found to have MINESH and being admitted on general medical floor. #1 neuroglycopenia likely due to overdose of diabetic medication Serum glucose improved to 155, still groggy, no neurologic deficit, normal CT of the head, I will hold all his diabetic medication, put him on hypoglycemic protocol and low-dose corrective insulin, no hemoglobin A1c available, I will obtain new hemoglobin A1c, will try to get a list of his medication #2 nonoliguric MINESH likely due to dehydration or medication UA reviewed no active urinary sediment but mild proteinuria, I will obtain urine creatinine and urine sodium, will try fluid challenge with IV fluid normal saline 100 mL/h, monitor urine output, follow-up BMP tomorrow morning #3 history of hypertension Will resume his hypertensive regimen, in the meantime I will put him on labetalol as needed to keep systolic blood pressure. DVT prophylaxis enoxaparin subcu. Disposition; plan to discharge home in a couple of days - Advance Directives Does patient have a Living Will: No Does patient have a Durable POA for Healthcare: No
[2024-04-08] MEDS ORDERED: LABETALOL 20 MG/4ML SYRINGE IV PRN (12:08)
[2024-04-08 15:30] VITALS: BMI 4868.4
[2024-04-08] MEDS: NA CHLORIDE 0.9% 1,000 ML IV SCH (15:35)
[2024-04-09 07:14] LABS: Anion Gap 7.7 mEq/L (5.0-15.0); Potassium 3.7 mEq/L (3.5-5.1)
[2024-04-09] MEDS: AMITRIPTYLINE 25 MG TAB ONE (21:17)
[2024-04-09] MEDS: AMITRIPTYLINE 25 MG TAB PO SCH (21:34)
--- NOTE | 2024-04-09 22:29 | RAD REPORT ---
EXAM: Chest Single View HISTORY: sob COMPARISON: None. FINDINGS: LUNGS/PLEURA: The lungs are clear. No pleural effusions or pneumothorax. No pulmonary edema. MEDIASTINUM: The mediastinal silhouette is within normal limits. CARDIAC: The cardiac silhouette is within normal limits. UPPER ABDOMEN: No significant abnormality. BONES: No acute abnormality. LINES/TUBES/OTHER: N/A IMPRESSION: No evidence of acute cardiopulmonary disease.
[2024-04-09 23:30] VITALS: O2SAT 97
--- NOTE | 2024-04-10 12:20 | EKG ---
Test Date: 2024-04-08 Test Time: 07:19:24 Director Of Distance Learning: NELLY MEASUREMENT RESULTS: Intervals: Rate: 111 MN: 162 QRSD: 78 QT: 338 QTc: 459 Howard: P: 40 MN: 162 QRS: 42 T: -2 INTERPRETIVE STATEMENTS: Sinus tachycardia Inferior infarct, age undetermined Cannot rule out Anterior infarct, age undetermined Abnormal ECG Compared to ECG 03/25/2024 13:53:01 Myocardial infarct finding now present Sinus rhythm no longer present Atrial premature complex(es) no longer present Electronically Signed On 04-10-24 12:16:19 EARLY [employer] SCHOOL PSYCHOLOGIST by Partha Coughlin
[2024-04-10 12:40] VITALS: BP 147/92; TEMP 97.9
[2024-04-10] MEDS ORDERED: ATORVASTATIN 40 MG TAB PO SCH (21:00)
[2024-04-11] MEDS ORDERED: COLESEVELAM HCL 625 MG PO SCH (09:00)
[2024-04-11] MEDS ORDERED: lisinopriL 20 MG TAB PO SCH (09:00)
== END 2024-04-10 14:49 | disposition home or self-care (01) | DRG 639 ==
LOC: ER 07:10 → ERHOLD 10:58 → 4TH 14:24
PROVIDERS: ADMIT Internal Medicine; ATTEND Hospitalist
DX: E11.649 Type 2 diabetes mellitus with hypoglycemia without coma (principal); N17.9 Acute kidney failure, unspecified; E86.0 Dehydration; I10 Essential (primary) hypertension; R80.9 Proteinuria, unspecified; Z79.4 Long term (current) use of insulin; Z11.52 Encounter for screening for COVID-19
CPT/HCPCS: 36415; 70450; 71045; 80048; 80053; 81001; 82947; 83036; 83605; 85025; 85610; 85730; 87040; 87804; 87811; 93005; 99285; J7030

== ENCOUNTER 2024-04-13 10:47 | Emergency (ER) | payer OTHER ==
[2024-04-13 11:13] LABS: Absolute Basophils 0.2 K/uL (0-0.5); Absolute Eosinophils 0.4 K/uL (0-0.5); Absolute Lymphocytes (CBC) 1.6 K/uL (0.7-4.9); Absolute Monocytes 0.8 K/uL (0.1-1.3); Absolute Neutrophil 4.1 K/uL (1.8-8.0); Basophils % 2.2 % (0-1.3); Eosinophils % 5.7 % (0-4.4); Hematocrit 32.5 % (39.6-49.0); Hemoglobin 11.3 g/dL (13.6-17.9); Lymphocytes % 22.1 % (15.3-44.8); MCH 30.3 pg (27.0-35.0); MCHC 34.9 g/dL (32.0-36.0); MCV 86.7 fL (80-100); MPV 9.1 fL (7.6-11.3); Monocytes % 11.4 % (3.3-12.3); Neutrophils % 58.6 % (41.7-73.7); Platelets 214 thou/uL (152-406); RBC Red Blood Cell Count 3.74 M/uL (4.33-5.43); Red Cell Distribution Width 13.8 % (12.1-15.2)
[2024-04-13 11:23] LABS: PT Prothrombin Time 12.2 SECONDS (9.4-12.5); Protime INR 1.16
[2024-04-13 11:37] LABS: ALT/SGPT 36 U/L (16-61); AST/SGOT 21 U/L (15-37); Albumin 2.5 g/dL (3.4-5.0); Albumin/Globulin Ratio 0.7 (1.1-1.8); Alkaline Phosphatase 116 U/L (45-117); Anion Gap 8.9 mEq/L (5.0-15.0); BUN Blood Urea Nitrogen 23 mg/dL (7-18); Bicarbonate 26 mEq/L (21-32); Bilirubin Total 0.2 mg/dL (0.2-1.0); Globulin 3.4 g/dL (2.3-3.5); Glomerular Filtration Rate 39 ml/min (=/>90); Glucose Level 83 mg/dL (74-106); Magnesium 1.6 mg/dL (1.6-2.4); NT PRO-BNP 126 pg/mL (<125); Potassium 3.9 mEq/L (3.5-5.1); Protein, Total 5.9 g/dL (6.4-8.2); Sodium Level 140 mEq/L (136-145)
[2024-04-13 11:38] LABS: Bilirubin Direct < 0.2 mg/dL (0-0.2); Troponin High Sensitivity < 3.0 pg/mL (<58.9)
--- NOTE | 2024-04-13 11:49 | RAD REPORT ---
EXAM: Chest Single View HISTORY: COUGH COMPARISON: None. FINDINGS: LUNGS/PLEURA: The lungs are clear. No pleural effusions or pneumothorax. No pulmonary edema. MEDIASTINUM: The mediastinal silhouette is within normal limits. CARDIAC: The cardiac silhouette is within normal limits. UPPER ABDOMEN: No significant abnormality. BONES: No acute abnormality. LINES/TUBES/OTHER: N/A IMPRESSION: No evidence of acute cardiopulmonary disease.
--- NOTE | 2024-04-13 11:53 | RAD REPORT ---
EXAMINATION: CT HEAD WITHOUT CONTRAST CLINICAL INDICATION: Male, 39 years old.MENTAL STATUS CHANGE TECHNIQUE: Axial CT images from the skull base to the vertex without intravenous contrast. Coronal an d sagittal reformatted images were created from the data set. One or more of the following dose reduction techniques were used: Automated exposure control, adjustment of the mA and/or kV according to patient size, and/or iterative reconstruction. Unless otherwise specified, incidental findings do not require dedicated imaging follow-up. [id number]. COMPARISON: No prior exam. FINDINGS: INTRACRANIAL: No acute intracranial hemorrhage. No hydrocephalus. No mass effect or midline shift. No significant white matter disease.Randall cisterna magna. VASCULATURE: No visualized abnormalities in the arteries or dural venous sinuses. SCALP/SKULL: No significant soft tissue or osseous abnormalities. SINUSES: The visualized paranasal sinuses and mastoid air cells are predominantly clear. IMPRESSION: No acute intracranial abnormality. No significant change from prior.
[2024-04-13] MEDS ORDERED: MAGNESIUM SULFATE 1 gm IVPB 1 GM/100 ML BAG IV ONE (11:59)
--- NOTE | 2024-04-13 13:05 | ER ---
Nurse's Notes [facility] Name: Ramakrishna Santana Age: 39 yrs Sex: Male : 1985 Arrival Date: 04/13/2024 Time: 10:47 Bed 16 Private MD: Diagnosis: Weakness;Type 2 diabetes mellitus with hyperglycemia;Unspecified kidney failure-CHRONIC;Hypoglycemia, unspecified;Other specified diabetes mellitus with hypoglycemia without coma;Adverse effect of insulin and oral hypoglycemic [antidiabetic] drugs Presentation: 04/13 10:49 Chief complaint: EMS states: Toned out for low blood sugar, on EMS arrival BGL was 505. jl7 Coronavirus screen: At this time, the client does not indicate any symptoms associated with coronavirus-19. Ebola Screen: No symptoms or risks identified at this time. Risk Assessment: Do you want to hurt yourself or someone else? Patient reports no desire to harm self or others. Onset of symptoms was April 13, 2024. 10:49 Method Of Arrival: EMS: [place] [address] 10:49 Acuity: BERRY 3 jl7 10:53 Initial Sepsis Screen: Does the patient meet any 2 criteria? HR > 90 bpm. Does the kc6 patient have a suspected source of infection? No. Patient's initial sepsis screen is negative. 10:53 Care prior to arrival: Medication(s) given: Normal saline infusion, 500 mL, IV kc6 initiated. 18 GA, in the left antecubital area, Glucose check: 505. Historical: - Allergies: 10:54 NKDA; kc6 10:50 shrimp - anaphlaxis; jl7 - Home Meds: 10:50 amitriptyline 25 mg oral tablet daily [Active]; amlodipine 5 mg tablet [Active]; jl7 atorvastatin 40 mg oral tablet every evening [Active]; colesevelam 625 mg oral tablet [Active]; hydrochlorothiazide 25 mg Oral tablet [Active]; Lantus U-100 Insulin 100 unit/mL Sub-Q solution [Active]; levothyroxine 25 mcg capsule [Active]; lisinopril 20 mg Oral tablet [Active]; metoprolol tartrate 50 mg Oral tablet [Active]; Mounjaro 5 mg/0.5 mL subcutaneous Pen Injector [Active]; pioglitazone-metformin 15-500 mg oral tablet daily [Active]; - PMHx: 10:54 Hypertensive disorder; diabetes mellitus; kc6 10:50 Hypertensive disorder; diabetes mellitus; dyslipidemia (Unknown); Hypoglycemia; jl7 Pancreatitis; chronic; - PSHx: 10:54 Cholecystectomy; kc6 - Immunization history:: Adult Immunizations up to date. - Infectious Disease History:: Denies. - Family history:: not pertinent. - Social history:: Smoking status: Patient denies any tobacco usage or history of. Screenin:52 [facility] ED Fall Risk Assessment (Adult) History of falling in the last 3 months, kc6 including since admission No falls in past 3 months (0 pts) Confusion or Disorientation No (0 pts) Intoxicated or Sedated No (0 pts) Impaired Gait No (0 pts) Mobility Assist Device Used No (0 pt) Altered Elimination No (0 pt) Score/Fall Risk Level 0 - 2 = Low Risk Oriented to surroundings, Maintained a safe environment, Educated pt \T\ family on fall prevention, incl call for assistance when getting out of bed. Abuse screen: Denies threats or abuse. Denies injuries from another. Nutritional screening: No deficits noted. Tuberculosis screening: No symptoms or risk factors identified. Assessment: 10:54 General: Appears in no apparent distress. comfortable, well groomed, well developed, kc6 Behavior is calm, cooperative, appropriate for age. Pain: Denies pain. Neuro: Level of Consciousness is awake, alert, obeys commands, Oriented to person, place, time, situation, Appropriate for age Marketing Regional Consultant are equal bilaterally Moves all extremities. Full function Gait is steady, Speech is normal, Facial symmetry appears normal, Pupils are PERRLA, Intact. Cardiovascular: Capillary refill < 3 seconds. Respiratory: Airway is patent Trachea midline Respiratory effort is even, unlabored, Respiratory pattern is regular, symmetrical. GI: No signs and/or symptoms were reported involving the gastrointestinal system. : No signs and/or symptoms were reported regarding the genitourinary system. EENT: No signs and/or symptoms were reported regarding the EENT system. Derm: No signs and/or symptoms reported regarding the dermatologic system. Skin is intact, is healthy with good turgor, Skin is pink, warm \T\ dry. Musculoskeletal: No signs and/or symptoms reported regarding the musculoskeletal system. Circulation, motion, and sensation intact. Range of motion: intact in all extremities. 11:55 Reassessment: Patient appears in no apparent distress at this time. No changes from 6 previously documented assessment. Patient and/or family updated on plan of care and expected duration. Pain level reassessed. Patient is alert, oriented x 3, equal unlabored respirations, skin warm/dry/pink. 12:50 Reassessment: Patient appears in no apparent distress at this time. No changes from 6 previously documented assessment. Patient and/or family updated on plan of care and expected duration. Pain level reassessed. Patient is alert, oriented x 3, equal unlabored respirations, skin warm/dry/pink. 14:05 Reassessment: Patient appears in no apparent distress at this time. No changes from kc6 previously documented assessment. Patient and/or family updated on plan of care and expected duration. Pain level reassessed. Patient is alert, oriented x 3, equal unlabored respirations, skin warm/dry/pink. Patient states feeling better. Patient states symptoms have improved. Vital Signs: 10:53 BP 137 / 84; Pulse 95; Resp 18 S; Temp 97.8(O); Pulse Ox 100% on R/A; Weight 102.06 kg kc6 (R); Height 5 ft. 7 in. (R); Pain 0/10; 12:05 BP 105 / 72; Pulse 90; Resp 16 S; Pulse Ox 99% on R/A; kc6 12:50 BP 109 / 71; Pulse 88; Resp 18 S; Pulse Ox 99% on R/A; kc6 10:53 Body Mass Index 35.24 (102.06 kg, 170.18 cm) [facility] 10:53 Pain Scale: Adult [facility] NIH Stroke Scale Scores: 11:32 NIHSS Score: 0 [facility] ED Course: 10:49 Patient arrived in ED. [facility] 10:49 Angel Savage MD is Attending Physician. [facility] 10:50 Demetria Huston RN is Primary Nurse. [facility] 10:50 Triage completed. jl7 10:51 Maintain EMS IV. Dressing intact. Good blood return noted. Site clean \T\ dry. Gauge \T\ sherwin 6 site: 18G LAC. Flushed with 10 mL NS. Patient maintains SpO2 saturation greater than 95% on room air. 10:52 Patient has correct armband on for positive identification. Bed in low position. Call kc6 light in reach. Side rails up X2. Pulse ox on. NIBP on. Door closed. Noise minimized. Lights dimmed. Pillow given. 10:53 Arm band placed on. kc6 11:07 Initial lab(s) drawn, by me, sent to lab. EKG done, by bioinformatics technician. reviewed by Angel Savage MD. 11:38 CT Head Brain wo Cont In Process Unspecified. EDMS 11:45 XRAY Chest (1 view) In Process Unspecified. EDMS 12:55 Assisted to bathroom. kc6 13:10 Diet: Patient given snack. Patient given juice. Tolerated well. kc6 14:05 No provider procedures requiring assistance completed. IV discontinued, intact, kc6 bleeding controlled, No redness/swelling at site. Pressure dressing applied. Administered Medications: 10:58 Drug: NS 0.9% IV 1000 ml IV at 1000 ml once; to be given as a bolus over 60 minutes kc6 Route: IV; Rate: 1000 ml; Site: left antecubital; 12:02 Follow up: Response: No adverse reaction; IV Status: Completed infusion; IV Intake: kc6 1000ml 12:02 Not Given (Hemodynamic Parameters): insulin regular human10 units IVP once; IF GREATER kc6 THAN 500 12:02 Not Given (Hemodynamic Parameters): insulin regular human10 units Sub-Q once; IF kc6 GREATER THAN 500 12:02 Drug: Magnesium Sulfate IVPB 1 grams IVPB once over 1 hrs Route: IVPB; Infused Over: 1 kc6 hrs; Site: left antecubital; 14:04 Follow up: Response: No adverse reaction; IV Status: Completed infusion; IV Intake: kc6 100ml Medication: 14:05 VIS not applicable for this client. kc6 Intake: 12:02 IV: 1000ml; Total: 1000ml. kc6 14:04 IV: 100ml; Total: 1100ml. kc6 Outcome: 13:04 Discharge ordered by MD. rausch 14:05 Discharged to home ambulatory, with family, kc6 14:05 Condition: improved 14:05 Discharge instructions given to patient, Instructed on discharge instructions, follow up and referral plans. Demonstrated understanding of instructions, follow-up care, 14:05 Patient left the ED. kc6 NIH Stroke Scale - NIH Stroke Score Date: 04/13/2024 Time: 11:32 Total Score = 0 10. Dysarthria (speech clarity - read or repeat words) - 0(Normal) 11. Extinction and Inattention (visual/tactile/auditory/spatial/personal) - 0(No abnormality) 1a. Level of Consciousness (LOC) - 0(Alert) 1b. Level of Consciousness (LOC) (Month \T\ Age) - 0(Both) 1c. LOC Commands (Open \T\ Closes Eyes/Stock Wetter) - 0(Both) 2. Best Gaze (Lateral Gaze Paresis) - 0(Normal) 3. Visual Field Loss - 0(No visual loss) 4. Facial Palsy - 0(Normal) 5a. Left Arm: Motor (10-second hold) - 0(No drift) 5b. Right Arm: Motor (10-second hold) - 0(No drift) 6a. Left Leg: Motor (5-second hold - always test supine) - 0(No drift) 6b. Right Leg: Motor (5-second hold - always test supine) - 0(No drift) 7. Limb Ataxia (finger/nose \T\ heel/serrano - test with eyes open) - 0(Absent) 8. Sensory Loss (pinprick arms/legs/face) - 0(Normal) 9. Best Language: Aphasia (description/naming/reading) - 0(No aphasia) Initials: miracle Signatures: Dispatcher [employer] EDAngel Murguia MD MD cha Leal, Jahala RN RN jl7 Demetria Huston RN RN kc6 Corrections: (The following items were deleted from the chart) 10:56 10:50 Allergies: LARONDA; bro jl7
--- NOTE | 2024-04-13 13:05 | EDPHYS ---
Physician Documentation [facility] Name: Ramakrishna Santana Age: 39 yrs Sex: Male : 1985 Arrival Date: 04/13/2024 Time: 10:47 Bed 16 Private MD: ED Physician Angel Savage HPI: 04/13 10:51 This 39 yrs old Male presents to ER via EMS with complaints of High Blood miracle Sugar. 10:51 The patient or guardian reports hyperglycemia. Onset: The symptoms/episode miracle began/occurred just prior to arrival, this morning. Associated signs and symptoms: Pertinent positives: None. Current symptoms: In the emergency department the patient's symptoms have improved, mildly. It is unknown whether or not the patient has had similar symptoms in the past. Historical: - Allergies: 10:54 NKDA; kc6 10:50 shrimp - anaphlaxis; jl7 - Home Meds: 10:50 amitriptyline 25 mg oral tablet daily [Active]; amlodipine 5 mg tablet [Active]; jl7 atorvastatin 40 mg oral tablet every evening [Active]; colesevelam 625 mg oral tablet [Active]; hydrochlorothiazide 25 mg Oral tablet [Active]; Lantus U-100 Insulin 100 unit/mL Sub-Q solution [Active]; levothyroxine 25 mcg capsule [Active]; lisinopril 20 mg Oral tablet [Active]; metoprolol tartrate 50 mg Oral tablet [Active]; Mounjaro 5 mg/0.5 mL subcutaneous Pen Injector [Active]; pioglitazone-metformin 15-500 mg oral tablet daily [Active]; - PMHx: 10:54 Hypertensive disorder; diabetes mellitus; kc6 10:50 Hypertensive disorder; diabetes mellitus; dyslipidemia (Unknown); Hypoglycemia; jl7 Pancreatitis; chronic; - PSHx: 10:54 Cholecystectomy; kc6 - Immunization history:: Adult Immunizations up to date. - Infectious Disease History:: Denies. - Family history:: not pertinent. - Social history:: Smoking status: Patient denies any tobacco usage or history of. ROS: 10:52 Constitutional: Negative for fever, chills, and weight loss, Eyes: Negative for injury, miracle pain, redness, and discharge, ENT: Negative for injury, pain, and discharge, Neck: Negative for injury, pain, and swelling, Cardiovascular: Negative for chest pain, palpitations, and edema, Respiratory: Negative for shortness of breath, cough, wheezing, and pleuritic chest pain, Abdomen/GI: Negative for abdominal pain, nausea, vomiting, diarrhea, and constipation, Back: Negative for injury and pain, : Negative for injury, bleeding, discharge, and swelling, MS/Extremity: Negative for injury and deformity, Skin: Negative for injury, rash, and discoloration, Psych: Negative for depression, anxiety, suicide ideation, homicidal ideation, and hallucinations, Allergy/Immunology: Negative for hives, rash, and allergies, Endocrine: Negative for neck swelling, polydipsia, polyuria, polyphagia, and marked weight changes, 10:52 Neuro: Positive for altered mental status, weakness, Exam: 10:52 Constitutional: This is a well developed, well nourished patient who is awake, alert, miracle and in no acute distress. Head/Face: Normocephalic, atraumatic. Eyes: Pupils equal round and reactive to light, extra-ocular motions intact. Lids and lashes normal. Conjunctiva and sclera are non-icteric and not injected. Cornea within normal limits. Periorbital areas with no swelling, redness, or edema. ENT: Nares patent. No nasal discharge, no septal abnormalities noted. Tympanic membranes are normal and external auditory canals are clear. Oropharynx with no redness, swelling, or masses, exudates, or evidence of obstruction, uvula midline. Mucous membranes moist. Neck: Trachea midline, no thyromegaly or masses palpated, and no cervical lymphadenopathy. Supple, full range of motion without nuchal rigidity, or vertebral point tenderness. No Meningismus. Chest/axilla: Normal chest wall appearance and motion. Nontender with no deformity. No lesions are appreciated. Cardiovascular: Regular rate and rhythm with a normal S1 and S2. No gallops, murmurs, or rubs. Normal PMI, no JVD. No pulse deficits. Respiratory: Lungs have equal breath sounds bilaterally, clear to auscultation and percussion. No rales, rhonchi or wheezes noted. No increased work of breathing, no retractions or nasal flaring. Abdomen/GI: Soft, non-tender, with normal bowel sounds. No distension or tympany. No guarding or rebound. No evidence of tenderness throughout. Back: No spinal tenderness. No costovertebral tenderness. Full range of motion. Skin: Warm, dry with normal turgor. Normal color with no rashes, no lesions, and no evidence of cellulitis. MS/ Extremity: Pulses equal, no cyanosis. Neurovascular intact. Full, normal range of motion., bilateral aka Neuro: Awake and alert, GCS 15, oriented to person, place, time, and situation. Cranial nerves II-XII grossly intact. Motor strength 5/5 in all extremities. Sensory grossly intact. Cerebellar exam normal. Normal gait. Psych: Awake, alert, with orientation to person, place and time. Behavior, mood, and affect are within normal limits. 11:13 ECG was reviewed by the Attending Physician. [facility] Vital Signs: 10:53 BP 137 / 84; Pulse 95; Resp 18 S; Temp 97.8(O); Pulse Ox 100% on R/A; Weight 102.06 kg kc6 (R); Height 5 ft. 7 in. (R); Pain 0/10; 12:05 BP 105 / 72; Pulse 90; Resp 16 S; Pulse Ox 99% on R/A; kc6 12:50 BP 109 / 71; Pulse 88; Resp 18 S; Pulse Ox 99% on R/A; kc6 10:53 Body Mass Index 35.24 (102.06 kg, 170.18 cm) 6 10:53 Pain Scale: Adult kc6 NIH Stroke Scale Scores: 11:32 NIHSS Score: 0 miracle MDM: 10:49 Medical Screening Exam initiated miracle 10:53 Differential diagnosis: hyperglycemia. Differential Diagnosis: CVA, electrolyte miracle abnormality, hypoglycemia, pneumonia, seizure, sepsis, TIA, volume depletion. Data reviewed: vital signs, nurses notes, EMS record, lab test result(s), EKG, radiologic studies, plain films. Consideration of Admission/Observation Escalation of care including admission/observation considered. I considered the following discharge prescriptions or medication management in the emergency department Medications were administered in the Emergency Department. See MAR. Independent interpretation of the following test(s) in the Emergency Department EKG: See my EKG interpretation above. Test considered but Not performed: CT: NO CT HEAD. Historians other than the Patient: EMS: EMS WELL INFORMED. Care significantly affected by the following chronic conditions: Diabetes, Hypertension. Counseling: I had a detailed discussion with the patient and/or guardian regarding the historical points, exam findings, and any diagnostic results supporting the discharge/admit diagnosis, lab results, radiology results. 04/13 10:50 Order name: Basic Metabolic Panel; Complete Time: 11:46 [facility] 04/13 10:50 Order name: CBC with Diff; Complete Time: 11:32 [facility] 04/13 10:50 Order name: LFT's; Complete Time: 11:46 [facility] 04/13 10:50 Order name: Magnesium; Complete Time: 11:46 [facility] 04/13 10:50 Order name: NT PRO-BNP; Complete Time: 11:46 [facility] 04/13 10:50 Order name: PT-INR; Complete Time: 11:32 [facility] 04/13 10:50 Order name: Troponin HS; Complete Time: 11:46 [facility] 04/13 10:51 Order name: Urinalysis w/ reflexes miracle 04/13 11:10 Order name: Glucose, Ancillary Testing; Complete Time: 11:32 EDMS 04/13 13:21 Order name: Glucose, Ancillary Testing EDKY 04/13 13:59 Order name: Glucose, Ancillary Testing EDKY 04/13 10:50 Order name: XRAY Chest (1 view); Complete Time: 11:57 [facility] 04/13 11:10 Order name: CT Head Brain wo Cont; Complete Time: 11:57 [facility] 04/13 10:50 Order name: Cardiac monitoring; Complete Time: 10:56 [facility] 04/13 10:50 Order name: EKG - Nurse/Tech; Complete Time: 11:07 04/13 10:50 Order name: IV Saline Lock; Complete Time: 10:56 [facility] 04/13 10:50 Order name: Labs collected and sent; Complete Time: 11:07 [facility] 04/13 10:50 Order name: O2 Per Protocol; Complete Time: 10:56 [facility] 04/13 10:50 Order name: O2 Sat Monitoring; Complete Time: 10:56 [facility] 04/13 10:50 Order name: Glucose Level; Complete Time: 10:58 [facility] 04/13 12:40 Order name: Misc. Order: GET URINE; Complete Time: 13:06 miracle 04/13 13:04 Order name: Blood Glucose Level; Complete Time: 13:06 [facility] EC:13 Rate is 94 beats/min. Rhythm is regular. QRS Ribera is Normal. DC interval is normal. QRS miracle interval is normal. QT interval is normal. No Q waves. T waves are Normal. No ST changes noted. Clinical impression: NSR w/ Non-specific ST/T Changes and No evidence of ischemia. Interpreted by me. Reviewed by me. Administered Medications: 10:58 Drug: NS 0.9% IV 1000 ml IV at 1000 ml once; to be given as a bolus over 60 minutes kc6 Route: IV; Rate: 1000 ml; Site: left antecubital; 12:02 Follow up: Response: No adverse reaction; IV Status: Completed infusion; IV Intake: kc6 1000ml 12:02 Not Given (Hemodynamic Parameters): insulin regular human10 units IVP once; IF GREATER kc6 THAN 500 12:02 Not Given (Hemodynamic Parameters): insulin regular human10 units Sub-Q once; IF kc6 GREATER THAN 500 12:02 Drug: Magnesium Sulfate IVPB 1 grams IVPB once over 1 hrs Route: IVPB; Infused Over: 1 kc6 hrs; Site: left antecubital; 14:04 Follow up: Response: No adverse reaction; IV Status: Completed infusion; IV Intake: kc6 100ml Disposition Summary: 04/13/24 13:04 Discharge Ordered Notes: Location: Home miracle Problem: new miracle Symptoms: have improved miracle Condition: Stable miracle Diagnosis - Weakness miracle - Type 2 diabetes mellitus with hyperglycemia miracle - Unspecified kidney failure - CHRONIC miracle - Hypoglycemia, unspecified miracle - Other specified diabetes mellitus with hypoglycemia without coma miracle - Adverse effect of insulin and oral hypoglycemic [antidiabetic] drugs miracle Followup: miracle - With: Private Physician - When: 2 - 3 days - Reason: Recheck today's complaints, Continuance of care, Re-evaluation by your physician Discharge Instructions: - Discharge Summary Sheet miracle - Hyperglycemia miracle - Hypoglycemia miracle - Weakness miracle - Daily Diabetes Mellitus Record miracle - Fatigue miracle - Diabetes Mellitus and Nutrition, Adult miracle - Weakness, [id number] miracle - Chronic Kidney Disease, Adult, [id number] miracle - Chronic Kidney Disease, Adult miracle - Hypoglycemia, [id number] miracle Forms: - Medication Reconciliation Form miracle - Antibiotic Education miracle - Prescription Opioid Use miracle - Patient Portal Instructions miracle - Leadership Thank You Letter miracle NIH Stroke Scale - NIH Stroke Score Date: 04/13/2024 Time: 11:32 Total Score = 0 10. Dysarthria (speech clarity - read or repeat words) - 0(Normal) 11. Extinction and Inattention (visual/tactile/auditory/spatial/personal) - 0(No abnormality) 1a. Level of Consciousness (LOC) - 0(Alert) 1b. Level of Consciousness (LOC) (Month \T\ Age) - 0(Both) 1c. LOC Commands (Open \T\ Closes Eyes/Research Tech) - 0(Both) 2. Best Gaze (Lateral Gaze Paresis) - 0(Normal) 3. Visual Field Loss - 0(No visual loss) 4. Facial Palsy - 0(Normal) 5a. Left Arm: Motor (10-second hold) - 0(No drift) 5b. Right Arm: Motor (10-second hold) - 0(No drift) 6a. Left Leg: Motor (5-second hold - always test supine) - 0(No drift) 6b. Right Leg: Motor (5-second hold - always test supine) - 0(No drift) 7. Limb Ataxia (finger/nose \T\ heel/serrano - test with eyes open) - 0(Absent) 8. Sensory Loss (pinprick arms/legs/face) - 0(Normal) 9. Best Language: Aphasia (description/naming/reading) - 0(No aphasia) Initials: miracle Signatures: Dispatcher [employer] EDMS Angel Savage MD MD cha Leal, Jahala RN RN jl7 Demetria Huston RN RN kc6 Corrections: (The following items were deleted from the chart) 10:51 10:51 BASIC METABOLIC PANEL+C.LAB.BRZ ordered. EDMS EDMS 10:51 10:51 CBC+H.LAB.BRZ ordered. EDMS EDMS 10:51 10:51 HEPATIC FUNCTION+C.LAB.BRZ ordered. EDMS EDMS 10:51 10:51 MAGNESIUM+C.LAB.BRZ ordered. EDMS EDMS 10:51 10:51 PROBNP+C.LAB.BRZ ordered. EDMS EDMS 10:51 10:51 PROTIME (+INR)+COAG.LAB.BRZ ordered. EDMS EDMS 10:51 10:51 Troponin High Sensitivity+C.LAB.BRZ ordered. EDMS EDMS 10:51 10:51 Chest Single View+RAD.RAD.BRZ ordered. EDMS EDMS 10:51 10:51 Urinalysis+U.LAB.BRZ ordered. EDMS EDMS 10:56 10:50 Allergies: NKDA; jl7 jl7 11:10 11:10 Head Brain Wo Cont+CT.RAD.BRZ ordered. EDMS EDMS
[2024-04-13 13:28] LABS: Specific Gravity 1.008 (1.005-1.030); Sqamous Epithelial None Seen /HPF (None Seen); Urine Bacteria None Seen /HPF (<20); Urine Bilirubin NEGATIVE (Negative); Urine Blood Trace (Negative); Urine Clarity Clear (Clear); Urine Color Colorless (Yellow); Urine Culture Reflex Order NOT NEEDED; Urine Glucose 3+ (Negative); Urine Ketones NEGATIVE (Negative); Urine Microscopic Reflex YN ORDER UMIC; Urine Nitrite NEGATIVE (Negative); Urine Protein 1+ (Negative); Urine RBC <5 /HPF (None Seen); Urine Urobilinogen Normal (Normal); Urine WBC <5 /HPF (<5); Urine pH 5.5 (5.0-7.0)
--- NOTE | 2024-04-13 13:37 | EKG ---
Test Date: 2024-04-13 Test Time: 11:08:00 Shipping Order Clerk: MARIAN MEASUREMENT RESULTS: Intervals: Rate: 94 HI: 176 QRSD: 80 QT: 360 QTc: 450 Ava: P: 43 HI: 176 QRS: 23 T: 2 INTERPRETIVE STATEMENTS: Normal sinus rhythm Inferior infarct, age undetermined Abnormal ECG Compared to ECG 04/08/2024 07:19:24 Sinus tachycardia no longer present Myocardial infarct finding still present Electronically Signed On 04-13-24 13:37:06 DIST[employer]BUTION DISTRICT SUPERVISOR by Jordi Ruiz
[2024-04-13 14:16] VITALS: TEMP 97.8
[2024-04-13 14:18] VITALS: O2SAT 99
[2024-04-13 14:19] VITALS: BP 109/71
== END 2024-04-13 14:05 | disposition home or self-care (01) ==
LOC: ER 10:47
DX: E11.65 Type 2 diabetes mellitus with hyperglycemia (principal); E11.649 Type 2 diabetes mellitus with hypoglycemia without coma; T38.3X5A Adverse effect of insulin and oral hypoglycemic [antidiabetic] drugs, initial encounter; E11.22 Type 2 diabetes mellitus with diabetic chronic kidney disease; I12.9 Hypertensive chronic kidney disease with stage 1 through stage 4 chronic kidney disease, or unspecified chronic kidney disease; N18.9 Chronic kidney disease, unspecified; Z79.4 Long term (current) use of insulin
CPT/HCPCS: 96365; 96361; 93005; 85025; 81001; 80048; 36415; 83735; 85610; 82947 ×3; 80076; 84484; 83880; 70450; 71045; 99284; 96366; J3475

== ENCOUNTER 2024-04-30 19:52 | Emergency (ER) | payer OTHER ==
[2024-04-30 20:50] LABS: Absolute Basophils 0.1 K/uL (0-0.5); Absolute Eosinophils 0.3 K/uL (0-0.5); Absolute Lymphocytes (CBC) 1.6 K/uL (0.7-4.9); Absolute Monocytes 0.6 K/uL (0.1-1.3); Absolute Neutrophil 5.9 K/uL (1.8-8.0); Basophils % 1.6 % (0-1.3); Eosinophils % 3.8 % (0-4.4); Hematocrit 37.3 % (39.6-49.0); Hemoglobin 12.6 g/dL (13.6-17.9); Lymphocytes % 18.6 % (15.3-44.8); MCH 29.4 pg (27.0-35.0); MCHC 33.8 g/dL (32.0-36.0); Monocytes % 6.6 % (3.3-12.3); Neutrophils % 69.4 % (41.7-73.7); Nucleated Red Blood Cells % 0.1 % (0-0); Platelets 232 thou/uL (152-406); RBC Red Blood Cell Count 4.29 M/uL (4.33-5.43); Red Cell Distribution Width 13.8 % (12.1-15.2)
[2024-04-30 21:05] LABS: Albumin 3.1 g/dL (3.4-5.0); Albumin/Globulin Ratio 0.8 (1.1-1.8); Anion Gap 8.5 mEq/L (5.0-15.0); Bilirubin Total 0.4 mg/dL (0.2-1.0); Globulin 3.9 g/dL (2.3-3.5); Magnesium 1.5 mg/dL (1.6-2.4); Potassium 3.5 mEq/L (3.5-5.1)
[2024-04-30 21:20] LABS: Specific Gravity 1.011 (1.005-1.030); Sqamous Epithelial None Seen /HPF (None Seen); Urine Bacteria <20 /HPF (<20); Urine Bilirubin NEGATIVE (Negative); Urine Blood 1+ (Negative); Urine Clarity Clear (Clear); Urine Color Light-Yellow (Yellow); Urine Culture Reflex Order NOT NEEDED; Urine Glucose 1+ (Negative); Urine Ketones NEGATIVE (Negative); Urine Microscopic Reflex YN ORDER UMIC; Urine Mucus Slight /HPF (None Seen); Urine Nitrite NEGATIVE (Negative); Urine Protein 2+ (Negative); Urine RBC <5 /HPF (None Seen); Urine Urobilinogen Normal (Normal); Urine WBC <5 /HPF (<5); Urine Yeast (Budding) Trace /HPF (None Seen); Urine pH 5.5 (5.0-7.0)
[2024-04-30] MEDS ORDERED: D5 0.45 NS 1,000 ML IV ONE (21:20)
[2024-04-30 21:26] LABS: Barbiturates NEGATIVE (NEGATIVE); Benzodiazepines NEGATIVE (NEGATIVE); Cocaine NEGATIVE (NEGATIVE); METHAMPHETAM NEGATIVE (NEGATIVE); Methadone NEGATIVE (NEGATIVE); Opiates NEGATIVE (NEGATIVE); Phencyclidine NEGATIVE (NEGATIVE); THC Cannibis NEGATIVE (NEGATIVE)
--- NOTE | 2024-04-30 21:32 | RAD REPORT ---
EXAMINATION: CT HEAD WITHOUT CONTRAST CLINICAL INDICATION: Male, 39 years old.CONFUSED TECHNIQUE: Axial CT images from the skull base to the vertex without intravenous contrast. Coronal an d sagittal reformatted images were created from the data set. One or more of the following dose reduction techniques were used: Automated exposure control, adjustment of the mA and/or kV according to patient size, and/or iterative reconstruction. Unless otherwise specified, incidental findings do not require dedicated imaging follow-up. [id number]. COMPARISON: 04/13/2024 FINDINGS: INTRACRANIAL: No acute intracranial hemorrhage. No hydrocephalus. No mass effect or midline shift. No significant white matter disease. Randall cisterna magna. VASCULATURE: No visualized abnormalities in the arteries or dural venous sinuses. SCALP/SKULL: No significant soft tissue or osseous abnormalities. SINUSES: The visualized paranasal sinuses and mastoid air cells are predominantly clear. IMPRESSION: No acute intracranial abnormality.
--- NOTE | 2024-04-30 23:35 | EDPHYS ---
Physician Documentation [facility] Name: Ramakirshna Santana Age: 39 yrs Sex: Male : 1985 Arrival Date: 04/30/2024 Time: 19:52 Bed 20 Private MD: ED Physician Bonifacio Vasquez HPI: 04/30 20:01 This 39 yrs old Male presents to ER via EMS with complaints of Low Blood Sugar. sb4 20:01 mom found him lying on the ground and called EMS, blood sugar was 35. patient states he sb4 took his normal dose of long acting insulin this morning, only ate lunch. is a poor historian, can't provide much further history. has no complaints at this time after improvement in BS to 135 with D10. this is the 4th visit to ED in 5 weeks for hypoglycemia. Historical: - Allergies: 19:58 shrimp - anaphlaxis; me1 - PMHx: 19:58 diabetes mellitus; dyslipidemia (Unknown); Hypertensive disorder; HYPOGLYCEMIA; me1 Pancreatitis; chronic; - PSHx: 19:58 Cholecystectomy; parathyroid removed x2 (Unknown); me1 - Immunization history:: Adult Immunizations unknown. - Infectious Disease History:: Denies. - Social history:: Smoking status: Patient denies any tobacco usage or history of. ROS: 20:02 Constitutional: Negative for fever, chills, and weight loss, sb4 20:02 All other systems are negative, Exam: 20:02 Constitutional: This is a well developed, well nourished patient who is awake, alert, sb4 and in no acute distress. Head/Face: Normocephalic, atraumatic. Eyes: Extra-ocular motions intact. Periorbital areas with no swelling, redness, or edema. ENT: Mucous membranes moist. Cardiovascular: Regular rate and rhythm with a normal S1 and S2. Respiratory: No increased work of breathing, no retractions or nasal flaring. Abdomen/GI: Soft, non-tender, no distension. Skin: Warm, dry with normal turgor. Normal color with no rashes, no lesions, and no evidence of cellulitis. Vital Signs: 19:55 BP 147 / 97; Pulse 85; Resp 17; Temp 98.8; Pulse Ox 98% ; Weight 102.06 kg; Height 5 me1 ft. 7 in. ; Pain 0/10; 21:00 BP 133 / 80; Pulse 93; Resp 18; Pulse Ox 100% ; me1 22:00 BP 128 / 78; Pulse 91; Resp 18; Pulse Ox 99% ; me1 23:00 BP 139 / 81; Pulse 88; Resp 17; Pulse Ox 99% ; me1 19:55 Body Mass Index 35.24 (102.06 kg, 170.18 cm) me1 19:55 Pain Scale: Adult wi1 MDM: 19:54 Medical Screening Exam initiated sb4 23:35 Data reviewed: vital signs, nurses notes, EMS record, lab test result(s), radiologic sb4 studies, I have discussed the patient's presentation/case with the attending Emergency Department Physician; and as a result, I will discharge patient. Counseling: I had a detailed discussion with the patient and/or guardian regarding the historical points, exam findings, and any diagnostic results supporting the discharge/admit diagnosis, lab results, radiology results, the need for outpatient follow up, for definitive care, to return to the emergency department if symptoms worsen or persist or if there are any questions or concerns that arise at home. 04/30 20:00 Order name: CBC with Diff; Complete Time: 20:56 sb4 04/30 20:00 Order name: CMP; Complete Time: 21:10 sb4 04/30 20:00 Order name: Urinalysis w/ reflexes; Complete Time: 21:21 sb4 04/30 20:00 Order name: Magnesium; Complete Time: 21:10 sb4 04/30 20:00 Order name: UDS; Complete Time: 21:27 sb4 04/30 20:26 Order name: Glucose, Ancillary Testing; Complete Time: 20:27 EDMS 04/30 22:35 Order name: Glucose, Ancillary Testing; Complete Time: 22:36 EDMS 04/30 23:34 Order name: Glucose, Ancillary Testing; Complete Time: 23:34 EDMS 04/30 20:00 Order name: Head Brain Wo Cont CT; Complete Time: 21:34 sb4 04/30 20:00 Order name: IV Saline Lock; Complete Time: 20:34 sb4 04/30 20:00 Order name: Labs collected and sent; Complete Time: 20:34 sb4 04/30 21:56 Order name: Accucheck; Complete Time: 22:23 sb4 04/30 22:58 Order name: Accucheck: after fluids finish; Complete Time: 23:22 sb4 Administered Medications: 21:24 Drug: D5-1/2 NS IV 1000 ml IV at bolus once; 1000 mL bolus; followed by 125 mL/hr me1 continuous Route: IV; Rate: bolus; Site: left antecubital; 23:20 Follow up: Response: No adverse reaction; IV Status: Completed infusion; IV Intake: me1 1000ml Point of Care Testing: Blood Glucose: 22: Blood Glucose: 174 mg/dL; me1 23:22 Blood Glucose: 307 mg/dL; me1 Ranges: Critical Glucose Levels:Adult <50 mg/dl or >400 mg/dl <40 mg/dl or >180 mg/dl Disposition Summary: 04/30/24 23:34 Discharge Ordered Notes: Location: Home sb4 Problem: new sb4 Symptoms: have improved sb4 Condition: Stable sb4 Diagnosis - Type 2 diabetes mellitus with hypoglycemia without coma sb4 Followup: sb4 - With: Emergency Department - When: As needed - Reason: Trouble breathing, Worsening of condition Discharge Instructions: - Discharge Summary Sheet sb4 - Hypoglycemia sb4 Forms: - Patient Portal Instructions sb4 - Leadership Thank You Letter sb4 Addendum: 05/05/2024 12:47 I was immediately available for consultation during this patient's visit. I did not e c2 personally see the patient or discuss the patient with the SCOTT. . Signatures: Dispatcher [employer] Fernanda Lewis PA-C PA-C sb4 Adelita Sanders RN RN me1 Bonifacio Vasquez MD MD ec2 Corrections: (The following items were deleted from the chart) 04/30 20: 20:01 URINE DRUG SCREEN+[id number].[email or web address].BRZ ordered. EDMS EDMS 20:02 20:01 mom found him lying on the ground and called EMS, blood sugar was 35. patient sb4 states he took his normal dose of long acting insulin this morning, only ate lunch. is a poor historian, can't provide much further history. has no complaints at this time after improvement in BS to 140 with D10. sb4 20:07 20:01 mom found him lying on the ground and called EMS, blood sugar was 35. patient sb4 states he took his normal dose of long acting insulin this morning, only ate lunch. is a poor historian, can't provide much further history. has no complaints at this time after improvement in BS to 135 with D10. sb4
--- NOTE | 2024-04-30 23:35 | ER ---
Nurse's Notes [facility] Name: Ramakrishna Santana Age: 39 yrs Sex: Male : 1985 Arrival Date: 04/30/2024 Time: 19:52 Bed 20 Private MD: Diagnosis: Type 2 diabetes mellitus with hypoglycemia without coma Presentation: 04/30 19:55 Chief complaint: EMS states: toned out for patient lying on floor, difficult to arouse. me1 BLG 35, 18 g LAC established and given D10 250 ml and BGL increased to 135 and patient is A\T\OX4. Coronavirus screen: Vaccine status: Patient reports being unvaccinated. Ebola Screen: No symptoms or risks identified at this time. Initial Sepsis Screen: Does the patient meet any 2 criteria? No. Patient's initial sepsis screen is negative. Does the patient have a suspected source of infection? No. Patient's initial sepsis screen is negative. Risk Assessment: Do you want to hurt yourself or someone else? Patient reports no desire to harm self or others. Onset of symptoms is unknown. 19:55 Method Of Arrival: EMS: [place] [id number] 19:55 Acuity: BERRY 3 me1 Triage Assessment: 19:58 General: Appears in no apparent distress. unkempt, well developed, well nourished, me1 Behavior is calm, cooperative, appropriate for age. Pain: Denies pain. EENT: No signs and/or symptoms were reported regarding the EENT system. Neuro: Level of Consciousness is awake, alert, obeys commands, Oriented to person, place, time, situation, Appropriate for age. Cardiovascular: Patient's skin is warm and dry. Respiratory: Airway is patent Respiratory effort is even, unlabored, Respiratory pattern is regular, symmetrical. GI: No signs and/or symptoms were reported involving the gastrointestinal system. : No signs and/or symptoms were reported regarding the genitourinary system. Derm: Skin is intact, is healthy with good turgor, Skin is pink, warm \T\ dry. Musculoskeletal: No signs and/or symptoms reported regarding the musculoskeletal system. Historical: - Allergies: 19:58 shrimp - anaphlaxis; me1 - PMHx: 19:58 diabetes mellitus; dyslipidemia (Unknown); Hypertensive disorder; HYPOGLYCEMIA; me1 Pancreatitis; chronic; - PSHx: 19:58 Cholecystectomy; parathyroid removed x2 (Unknown); me1 - Immunization history:: Adult Immunizations unknown. - Infectious Disease History:: Denies. - Social history:: Smoking status: Patient denies any tobacco usage or history of. Screenin:01 [facility] ED Fall Risk Assessment (Adult) History of falling in the last 3 months, me1 including since admission No falls in past 3 months (0 pts) Confusion or Disorientation No (0 pts) Intoxicated or Sedated No (0 pts) Impaired Gait No (0 pts) Mobility Assist Device Used No (0 pt) Altered Elimination No (0 pt) Score/Fall Risk Level 0 - 2 = Low Risk Maintained a safe environment, Provided non-skid footwear, Hourly rounding (assess needs \T\ fall precautionary measures) done. Abuse screen: Denies threats or abuse. Nutritional screening: No deficits noted. Tuberculosis screening: No symptoms or risk factors identified. Assessment: 20:01 General: See triage assessment. me1 Vital Signs: 19:55 BP 147 / 97; Pulse 85; Resp 17; Temp 98.8; Pulse Ox 98% ; Weight 102.06 kg; Height 5 me1 ft. 7 in. ; Pain 0/10; 21:00 BP 133 / 80; Pulse 93; Resp 18; Pulse Ox 100% ; me1 22:00 BP 128 / 78; Pulse 91; Resp 18; Pulse Ox 99% ; me1 23:00 BP 139 / 81; Pulse 88; Resp 17; Pulse Ox 99% ; me1 19:55 Body Mass Index 35.24 (102.06 kg, 170.18 cm) me1 19:55 Pain Scale: Adult [facility] ED Course: 19:52 Patient arrived in ED. jj6 19:54 Fernanda Rahman PA-C is PHCP. sb4 19:54 Bonifacio Vasquez MD is Attending Physician. sb4 19:55 Adelita Sanders, JAVI is Primary Nurse. me1 19:58 Triage completed. me1 19:58 Arm band placed on Patient placed in an exam room. me1 20:01 Patient has correct armband on for positive identification. Bed in low position. Call [facility] light in reach. Side rails up X2. Provided Education on: POC. Verbalized understanding.. Client placed on continuous cardiac and pulse oximetry monitoring. NIBP monitoring applied. Pulse ox on. NIBP on. 20:01 No provider procedures requiring assistance completed. Maintain EMS IV. Dressing me1 intact. Good blood return noted. Site clean \T\ dry. Gauge \T\ site: 18g LAC. Flushed with 10 mL NS. 20:34 CBC with Diff Sent. me1 20:34 CMP Sent. me1 20:34 Magnesium Sent. me1 21:17 UDS Sent. me1 21:17 Urinalysis w/ reflexes Sent. me1 21:17 Urine collected: clean catch specimen, cloudy. me1 21:27 Head Brain Wo Cont CT In Process Unspecified. EDMS 05/01 00:01 IV discontinued, intact, bleeding controlled, No redness/swelling at site. Pressure me1 dressing applied. Administered Medications: 04/30 21:24 Drug: D5-1/2 NS IV 1000 ml IV at bolus once; 1000 mL bolus; followed by 125 mL/hr me1 continuous Route: IV; Rate: bolus; Site: left antecubital; 23:20 Follow up: Response: No adverse reaction; IV Status: Completed infusion; IV Intake: me1 1000ml Medication: 20:01 VIS not applicable for this client. me1 Point of Care Testing: Blood Glucose: 22:28 Blood Glucose: 174 mg/dL; me1 23:22 Blood Glucose: 307 mg/dL; me1 Ranges: Intake: 23:20 IV: 1000ml; Total: 1000ml. me1 Outcome: 23:34 Discharge ordered by MD. [place] 05/01 00:01 Discharged to home ambulatory, me1 Condition: stable Discharge instructions given to patient, Instructed on discharge instructions, follow up and referral plans. Demonstrated understanding of instructions, follow-up care, 00:01 Patient left the ED. me1 Signatures: Dispatcher [employer] EDNicohle Zeng Sophia, PA-C PAJulio sb4 Adelita Sanders, RN RN me1
[2024-05-01 00:43] VITALS: TEMP 98.8
[2024-05-01 00:46] VITALS: O2SAT 99
[2024-05-01 00:48] VITALS: BP 139/81
== END 2024-05-01 00:01 | disposition home or self-care (01) ==
LOC: ER 19:52
DX: E11.649 Type 2 diabetes mellitus with hypoglycemia without coma (principal); I10 Essential (primary) hypertension
CPT/HCPCS: 96361; 85025; 81001; 36415; 83735; 82947 ×3; 80053; 80307; 70450; 96360; 99284; J7799